=== PATIENT | female | born 1945 | race Two or more races ===

== ENCOUNTER → 2024-03-13 | Outpatient (CLI) | payer MEDICARE, MEDICAID, SELFPAY ==
--- NOTE | 2024-03-13 14:00 | XR_ITS ---
Examination: Bone densitometry Date and time of exam:March 13, 2024 1527 hours INDICATIONS: Hysterectomy age 37 Technique: Lumbar spine and hip total bone mineralization values of an calculated. Peak reference and age match control results have been displayed. Findings: Lumbar spine total bone mineralization is0.837 gm/cm2. This is 1.9 standard deviations below peak reference. This is 0.8 standard deviations above age-matched controls. Hip total bone mineralization is 0.701 gm/cm2 This is 1.9 standard deviations below peak reference. This is 0.1 standard deviations above age-matched controls Impression: There is osteopenia based on lumbar spine measurements. There is osteoporosis based on hip measurements Lumbar mineralization is decreased 15% compared with May 02, 2019 Hip mineralization is decreased 15.5% compared with May 02, 2019
== END | disposition home or self-care (01) ==
LOC: CDIM 14:12
PROVIDERS: PCP Registered Nurse Community Health; Referring Provider Registered Nurse Community Health; Visit Provider Registered Nurse Community Health
DX: Z13.820 Encounter for screening for osteoporosis (principal); M81.0 Age-related osteoporosis without current pathological fracture; M85.88 Other specified disorders of bone density and structure, other site
CPT/HCPCS: 77080